=== PATIENT | female | born 1940 | race Caucasian/White ===

== ENCOUNTER → 2023-07-20 | Day surgery (SDC) | payer MEDICARE, OTHER ==
[~2023-07-20] MED LIST: Acetaminophen 325 MG Tab PO PRN; Acetaminophen/Codeine 300-30 MG Tab PO PRN; Ondansetron 4 MG/2 ML SDV IVPUSH PRN; Sodium Chloride 0.9% 10 ML Syringe FLUSH PRN
[2023-07-20] MEDS: Povidone-Iodine 5% Sterile Ophth Soln 30 ML Bottle EYELF ONE ×4 (06:22→08:06)
[2023-07-20] MEDS: Proparacaine 0.5% Ophth Soln 15 ML Bottle EYELF ONE ×4 (06:27→08:06)
[2023-07-20] MEDS: Balanced Salt Solution Ophth Irrig 500 ML Bottle IOCULAR ONE ×2 (06:28→08:13)
[2023-07-20] MEDS: Lidocaine 1% 30 ML SDV ONE ×2 (06:28→08:13)
[2023-07-20] MEDS: Vancomycin 500 MG SDV EYELF ONE ×2 (06:29→08:13)
[2023-07-20] MEDS: Chondroitin Sulfate/Hyaluronate Sodium Ophth Inj 0.75 ML Syringe EYELF ONE ×2 (06:31→08:14)
[2023-07-20] MEDS: Diclofenac Sodium 0.1% Ophth Soln 5 ML Bottle EYELF ONE ×2 (06:32→08:21)
[2023-07-20] MEDS: Apraclonidine 0.5% Ophth Soln 5 ML Bot EYELF ONE ×2 (06:32→08:21)
[2023-07-20] MEDS: Dexamethasone/Neomycin/Polymyxin B Ophth Oint 3.5 GM Tube EYELF ONE ×2 (06:33→08:21)
[2023-07-20] MEDS: Phenylephrine 10% Ophth Soln 5 ML Bot EYELF ONE (07:22)
[2023-07-20] MEDS: Timolol Maleate 0.5% Ophth Soln 5 ML Bottle EYELF ONE (07:22)
[2023-07-20] MEDS: Tropicamide 1% Ophth Soln 15 ML Bottle EYELF ONE (07:22)
[2023-07-20] MEDS: Moxifloxacin 0.5% Ophth Soln 3 ML Bottle EYELF ONE (07:23)
[2023-07-20] MEDS: Cataract Ophth Solution EYELF ONE (07:23)
[2023-07-20] MEDS: Dexamethasone 4 MG/ML SDV IOCULAR ONE (08:18)
== END ==
LOC: DL.SDS 06:56
PROVIDERS: ATTEND Ophthalmology
DX: H25.812 Combined forms of age-related cataract, left eye (principal); I10 Essential (primary) hypertension; E78.5 Hyperlipidemia, unspecified
CPT/HCPCS: 66984; A9270; J1100; J3370; 00142; 99100; J3490

== ENCOUNTER 2023-08-03 06:27 | Day surgery (SDC) | payer MEDICARE, OTHER ==
[~2023-08-03 06:27] MED LIST changes: -Acetaminophen 325 MG Tab PO PRN; -Acetaminophen/Codeine 300-30 MG Tab PO PRN; -Ondansetron 4 MG/2 ML SDV IVPUSH PRN; +Proparacaine 0.5% Ophth Soln 15 ML Bottle ONE; -Sodium Chloride 0.9% 10 ML Syringe FLUSH PRN
[2023-08-03] MEDS ORDERED: Midazolam 1 MG/ML 2 ML SDV IV ONE (06:28)
[2023-08-03] MEDS ORDERED: Sodium Chloride 0.9% 10 ML Syringe IV ONE (06:28)
[2023-08-03] MEDS ORDERED: Dexamethasone 4 MG/ML SDV IV ONE (06:28)
[2023-08-03] MEDS ORDERED: Acetaminophen 325 MG Tab PO PRN (06:30)
[2023-08-03] MEDS ORDERED: Acetaminophen/Codeine 300-30 MG Tab PO PRN (06:30)
[2023-08-03] MEDS ORDERED: Ondansetron 4 MG/2 ML SDV IVPUSH PRN (06:30)
[2023-08-03] MEDS: Sodium Chloride 0.9% 10 ML Syringe FLUSH PRN (06:54)
[2023-08-03] MEDS: Proparacaine 0.5% Ophth Soln 15 ML Bottle EYERT ONE ×2 (06:56→08:27)
[2023-08-03] MEDS: Moxifloxacin 0.5% Ophth Soln 3 ML Bottle EYERT ONE (06:56)
[2023-08-03] MEDS: Tropicamide 1% Ophth Soln 15 ML Bottle EYERT ONE (06:57)
[2023-08-03] MEDS: Povidone-Iodine 5% Sterile Ophth Soln 30 ML Bottle EYERT ONE ×2 (06:57→08:27)
[2023-08-03] MEDS: Phenylephrine 10% Ophth Soln 5 ML Bot EYERT ONE (06:58)
[2023-08-03] MEDS: Cataract Ophth Solution EYERT ONE (06:59)
[2023-08-03] MEDS: Timolol Maleate 0.5% Ophth Soln 5 ML Bottle EYERT ONE (06:59)
[2023-08-03] MEDS: Apraclonidine 0.5% Ophth Soln 5 ML Bot EYERT ONE (08:24)
[2023-08-03] MEDS: Diclofenac Sodium 0.1% Ophth Soln 5 ML Bottle EYERT ONE (08:25)
[2023-08-03] MEDS: Dexamethasone/Neomycin/Polymyxin B Ophth Oint 3.5 GM Tube EYERT ONE (08:25)
[2023-08-03] MEDS: Lidocaine 1% 30 ML SDV ONE (08:25)
[2023-08-03] MEDS: Vancomycin 500 MG SDV EYERT ONE (08:26)
== END 2023-08-03 08:55 | disposition home or self-care (01) ==
LOC: DL.SDS 06:27
PROVIDERS: ATTEND Ophthalmology
DX: H25.811 Combined forms of age-related cataract, right eye (principal); I10 Essential (primary) hypertension; E78.5 Hyperlipidemia, unspecified; Z79.899 Other long term (current) drug therapy
CPT/HCPCS: A9270-GY; J1100; J2250; J3370; J3490